=== PATIENT | male | born 1995 | race Caucasian/White ===

== ENCOUNTER 2017-05-24 23:42 | Emergency (ER) | payer MEDICAID, SELFPAY ==
[2017-05-24 23:44] VITALS: BP 124/76; PULSE 115; RESP 16; TEMP 39.1; O2SAT 97; BMI 24.1
--- NOTE | 2017-05-25 | ED.VISSUMM ---
- ER Visit Summary Date of Service: 05/25/17 Chief Complaint: Dental pain right upper and lower teeth History of Present Illness: The patient is a 22 M presents from [facility] because they gave him medicated cotton balls to apply for his dental pain. He reports fever and chills. He denies ocular, visual auditory symptoms. Denies difficulty opening closing his mouth. Denies change in voice, difficulty swallowing or breathing. He has no history rheumatic fever, murmur, SBE or IV drug use. He is not immune suppressed and is on no immunosuppressive meds. He denies any skin lesions. He denies myalgias arthralgias. He denies headache, photophobia sips of his neck. Physical Examination: Signs remarkable for temperature 102.3 and heart rate 115. He appears uncomfortable. Head is atraumatic no cephalic. Pupils equal reactive. TMs are normal. Nares patent. Posterior pharynx without erythema or exudate. Uvula is midline. Trach is midline with no stridor. He has erosion to the gumline involving the first and second right lower molar. The second upper right bicuspid has a large cavity. There is also a large defect in the right upper third molar. There is discomfort with tapping of the teeth. He reports cold sensitivity. There is no fluctuance or obvious dental/periodontal abscess. He probably has a periapical abscess. Test Results: None were obtained Emergency Department Course and Treatment: Patient received a dose of [place], Naprosyn and clindamycin. Treatment Plan: Total referral sheet, prescription for clindamycin, [place] and Naprosyn Disposition: Discharged to home with mother cabezas Impression: 1. Periapical abscess 2. Dental caries right upper first bicuspid and right upper third molar involving the pulp 3. Erosion of right first and second lower molar with inflammation of the gum. This note was generated with [employer] dictation software. It may contain incorrect words, spelling, and punctuation that were not noted in review of the chart prior to signing ED Disposition - Plan for ED Patient: Disposition: Home or Assisted Living Chief Complaint: Dental Instructions: Dental Abscess, ED Cavity Dental, ED Fever Control Prescriptions: Hydrocodone Bitart/Apap 5-325 [[place] 5MG-325MG] 1 tab PO Q6H PRN PRN 3 Days #10 tab PRN Reason: Pain Naproxen [Naprosyn] 500 mg PO BID #14 tab Clindamycin HCl 300 mg PO 4X/DAY #30 cap Referrals: NOT,DEFINED [NON-STAFF] - Krista Brown [NON-STAFF] - 3-5 Days
--- NOTE | 2017-05-25 00:09 | ED.DCSUM_ITS ---
- ER Visit Summary Date of Service: 05/25/17 Chief Complaint: Dental pain right upper and lower teeth History of Present Illness: The patient is a 22 M presents from [facility] because they gave him medicated cotton balls to apply for his dental pain. He reports fever and chills. He denies ocular, visual auditory symptoms. Denies difficulty opening closing his mouth. Denies change in voice , difficulty swallowing or breathing. He has no history rheumatic fever, murmur , SBE or IV drug use. He is not immune suppressed and is on no immunosuppressive meds. He denies any skin lesions. He denies myalgias arthralgias. He denies headache, photophobia sips of his neck. Physical Examination: Signs remarkable for temperature 102.3 and heart rate 115. He appears uncomfortable. Head is atraumatic no cephalic. Pupils equal reactive. TMs are normal. Nares patent. Posterior pharynx without erythema or exudate. Uvula is midline. Trach is midline with no stridor. He has erosion to the gumline involving the first and second right lower molar. The second upper right bicuspid has a large cavity. There is also a large defect in the right upper third molar. There is discomfort with tapping of the teeth. He reports cold sensitivity. There is no fluctuance or obvious dental/ periodontal abscess. He probably has a periapical abscess. Test Results: None were obtained Emergency Department Course and Treatment: Patient received a dose of [place], Naprosyn and clindamycin. Treatment Plan: Total referral sheet, prescription for clindamycin, [place] and Naprosyn Disposition: Discharged to home with mother cabezas Impression: 1. Periapical abscess 2. Dental caries right upper first bicuspid and right upper third molar involving the pulp 3. Erosion of right first and second lower molar with inflammation of the gum. This note was generated with [employer] dictation software. It may contain incorrect words, spelling, and punctuation that were not noted in review of the chart prior to signing ED Disposition - Plan for ED Patient: Disposition: Home or Assisted Living Chief Complaint: Dental Instructions: Dental Abscess, ED Cavity Dental, ED Fever Control Prescriptions: Hydrocodone Bitart/Apap 5-325 [[place] 5MG-325MG] 1 tab PO Q6H PRN PRN 3 Days #10 tab PRN Reason: Pain Naproxen [Naprosyn] 500 mg PO BID #14 tab Clindamycin HCl 300 mg PO 4X/DAY #30 cap Referrals: NOT,DEFINED [NON-STAFF] - Krista Brown [NON-STAFF] - 3-5 Days
[2017-05-25] MEDS: Naproxen 250 MG Tablet 500 MG PO (00:21)
[2017-05-25] MEDS: Clindamycin HCl 150 MG Capsule 300 MG PO (00:22)
[2017-05-25] MEDS: HYDROcodone Bitartrate/Apap 5/325 Tablet PO (00:22)
== END 2017-05-25 00:25 | disposition home or self-care (01) ==
PROVIDERS: Emergency Provider Emergency Medicine
DX: K04.7 Periapical abscess without sinus (principal); K02.9 Dental caries, unspecified; K03.2 Erosion of teeth; K05.10 Chronic gingivitis, plaque induced; R50.9 Fever, unspecified; Z72.0 Tobacco use
CPT/HCPCS: 99283

== ENCOUNTER 2019-05-19 20:44 | Emergency (ER) | payer MEDICAID, SELFPAY ==
[2019-05-19 20:45] VITALS: BP 119/70; PULSE 115; RESP 16; TEMP 37.4; O2SAT 91; BMI 18.8
--- NOTE | 2019-05-19 21:02 | RAD_ITS ---
STUDY: X-RAY CHEST REASON FOR EXAM: Male, 24 years old. COUGH WITH FEVER. LOW PULSE OX TECHNIQUE: PA and lateral views of the chest. COMPARISON: None. FINDINGS: Cardiac silhouette unremarkable. Pulmonary vascularity unremarkable. Aorta unremarkable. No focal airspace opacities. No pleural effusions. Upper abdomen unremarkable. Osseous structures intact. No pneumothorax. RAD/Chest PA and Lateral IMPRESSION: No acute cardiopulmonary findings Electronically Signed: Tray Esparza, at 22:02 EST Tel , Service support ,
--- NOTE | 2019-05-19 21:13 | ED.VIS.URI ---
History of Present Illness Chief Complaint: Fever Informant: Patient Onset: Days - 06-18 Context: Gradual Onset Timing: Continuous Current Severity: Moderate Maximum Severity: Moderate Worsened by: - - coughing Relieved by: - - albuterol MDI (wheezing) Associated Symptoms: Nasal Congestion, Headache, Myalgias, Nausea, Vomiting - just today, once, Shortness of Breath, Chest Pain - ribs, sore from coughing, Productive Cough Narrative: Mild chronic asthmatic who smokes presenting with flulike symptoms for the last for 5 days. He is having some shortness of breath but it is wheezing and he is not needing to use his albuterol very often. - Past Medical History (1) Asthma Status: Chronic Past Medical History - Allergies and Home Meds Allergies/Adverse Reactions: Allergies No Known Allergies Allergy (Verified 05/19/19 20:45) Primary Care Physician: Care Physician,No Primary [Primary Care Provider] - Smoking Status: Current every day smoker Drugs: None Review of Systems General: Reports: Fever, Malaise, Subjective. Denies: Chills, Sweats Eyes: Denies: Visual changes - bilaterally, Diplopia ENT: Reports: Bilateral ear pain, Rhinorrhea, Sore throat Cardiovascular: Reports: Chest pain. Denies: Palpitations Respiratory: Reports: Dyspnea, Cough, Sputum. Denies: Dyspnea on exertion, Orthopnea Gastrointestinal: Denies: Abdominal pain, Nausea, Vomiting, Diarrhea, Melena, Hematochezia Genitourinary: Denies: Dysuria, Hematuria, Frequency Musculoskeletal: Reports: Myalgias. Denies: Neck pain, Back pain, Swelling Skin: Denies: Rash, Wounds Neurological: Reports: Headache. Denies: Weakness, Numbness Physical Exam Vital Signs/Narrative: Vital Signs Temp Pulse Resp BP Pulse Ox 05/19/19 20:45 99.4 F H 115 H 16 119/70 91 Inital Vital Signs reviewed: Yes General: Well nourished, Well developed, - - NAD Head: Normocephalic, Atraumatic Eyes: Perrl, EOMI Ears: Normal external canal, TM's clear. Negative for: Pain with Movement of Right Tragus, Pain with Movement of Left Tragus, Right Mastoid Tenderness, Left Mastoid Tenderness Nose: Congestion. Negative for: Purulent Drainage Mouth/Throat: Normal Inspection, No Posterior Erythema Neck: Supple, Nontender, No Lymphadenopathy, No Meningismus Cardiovascular: Regular rate, Regular rhythm, No murmurs Respiratory: No distress, CTA bilaterally, Chest nontender Abdomen: Soft, Nontender, Nondistended, Normal bowel sounds Back: Nontender, Normal Inspection Extremities: Nontender, No edema Skin: Normal color, No rash, No Trauma Neurological: Alert, Oriented x3, Cranial nerves II-XII grossly intact, Normal Strength, Normal Sensation Psychological: Normal affect, Normal Mood Diagnostic/Tx/Re-eval Chest X-Ray - ED: 2 View, Read by ED Physician, Normal, Heart, Lungs, Mediastinum, Bony Structures, No Acute Disease - Medical Decision Making Chest x-ray was obtained given the patient's symptoms and pulse ox of only 91% on room air. On my interpretation it is normal. His influenza swab returned positive for influenza B, and certainly that would explain all of his symptoms. He is well outside of the window for getting Tamiflu, and furthermore is doing very well otherwise, and I do not think he needs prednisone for his asthma which has been relatively mild. I discussed that with him and he is in agreement. Supportive care advised, staying home and less he develops symptoms of pneumonia/sepsis, fluids and prn albuterol MDI encouraged. ED Disposition - Plan for ED Patient: Disposition: Home or Assisted Living Diagnosis: Influenza B, Asthma Instructions: INFLUENZA (Adult) Referrals: Doctor,Your [STAFF PHYSICIAN] - As Needed
[2019-05-19] MEDS: Acetaminophen 500 MG Tablet 1000 MG PO (21:24)
[2019-05-19] MEDS: Ketorolac 60 MG/2 ML Vial IM (21:25)
[2019-05-19 22:31] VITALS: BP 118/60; PULSE 80; RESP 16; TEMP 37.8; O2SAT 98
== END 2019-05-19 22:15 | disposition home or self-care (01) ==
PROVIDERS: Emergency Provider Emergency Medicine
DX: J10.1 Influenza due to other identified influenza virus with other respiratory manifestations (principal); J45.909 Unspecified asthma, uncomplicated; F17.200 Nicotine dependence, unspecified, uncomplicated
CPT/HCPCS: 71046; 87804; 96372; 99283

== ENCOUNTER 2025-03-02 15:08 | Emergency (ER) | payer BC, SELFPAY ==
[2025-03-02 15:10] VITALS: BP 128/81; PULSE 86; RESP 18; TEMP 37; O2SAT 99; BMI 21.4
--- NOTE | 2025-03-02 15:23 | RAD_ITS ---
PROCEDURE: FINGER(S) MIN 2 VIEWS 03/02/2025 REASON FOR EXAM: INJURY/PAIN TECHNIQUE: Procedure Code: RADFIN Modality: DX Procedure: 2ND FINGER(S) MIN 2 VIEWS COMPARISON: None. FINDINGS: BONES: No acute fracture or focal osseous lesion. JOINTS: No dislocation. The joint spaces are normal. SOFT TISSUES: There is swelling and tiny radiodense foreign bodies in the dorsal distal 2nd finger. RAD/Finger(s) Min 2 Views IMPRESSION: 1. No acute fracture or dislocation. 2. Swelling and foreign bodies in the dorsal distal 2nd finger. Reading Location: [id number]
--- NOTE | 2025-03-02 15:34 | EX.ED.GENINJ ---
HPI History of Present Illness Chief Complaint: Laceration Detail of Chief Complaint: Injury right index finger Informant: patient Onset/Context/Timing Onset: Today and Hours (Approximate 1 hour ago) Mechanism/Context: Blunt Injury (Hit with his maul.) Location of pain/injuries: Right hand Quality of Pain: Dull Location: Radial side of the right index finger over the DIP joint Current Severity: Mild Maximum Severity: Moderate Worsened by: Removing dressing Relieved by: Nothing Associated Symptoms Associated Symptoms: Negative for Parasthesias, Weakness or Loss of function Narrative Narrative: Patient is a 30-year-old ambidextrous male who presents with injury to his right index finger. This occurred approximate 1 hour prior to presentation. Tetanus is unknown. He has no allergies to antibiotics. Has not had any eat or drink in the past couple of hours. He denies paresthesia, anesthesia or motor weakness. Tetanus Immunization: Unknown Prior similar symptoms: No Recent Illness/Hospitalization: No PFSH PFS Medical History Allergies Active asthma Home Medications ?Medication ?Instructions ?Recorded ?Last Taken ?Type hydrocodone-acetaminophen 5-325mg 1 tab PO Q6H PRN PRN Pain 3 days 03/02/25 Unknown Rx 5mg-325mg #10 TABLETS Allergy/AdvReac Type Severity Reaction Status Date / Time No Known Allergies Allergy Verified 03/02/25 15:11 Social History Smoking Status: Current every day smoker tobacco type: cigarettes and e-cigarettes ROS ROS ED Musculoskeletal Musculoskeletal: Denies back pain, myalgias or neck pain Integumentary Reports other Details: Laceration/skin defect distal radial side of the right index finger Neurologic Neurologic: Denies paresthesias or weakness Hematologic/Lymphatic Hematologic/Lymphatic: Reports other Details: He is on no antithrombotic or anticoagulant. ; Denies easy bleeding or easy bruising EXAM Physical Exam Const Vital Signs: 03/02/25 15:10 Temperature 98.6 F Temperature Source Temporal Pulse Rate 86 Respiratory Rate 18 Blood Pressure 128/81 H Blood Pressure Mean 96 Pulse Ox 99 Oxygen Delivery Method Room Air Positive well nourished and well developed General Appearance ED: well developed and NAD HEENT HEENT Narrative: Head is normocephalic. atraumatic Eyes PERRL and EOMs intact bilaterally Resp normal respiratory effort Cardio regular rhythm Rate: regular rate Extremity full ROM; Negative for normal to inspection Extremity Narrative: Patient has full extension at the DIP and PIP joint of the right index finger. 2-point discrimination is normal. Capillary refill is normal. The skin appears macerated. Patient again was question when this happened and he responded 1 hour ago. There is skin loss. There may be exposure of tendon versus bone. There is no subungual hematoma noted. Median, radial and ulnar function intact. Neuro oriented x3 and CN's II-XII intact bilaterally Sensorium / Orientation: alert Psych mental status grossly normal and thought process normal Skin Skin Narrative: Skin loss linear distal radial side right index finger 3 cm PROC Procedures Other Procedures Procedure(s): Patient has a gaping laceration. It is gaping because there is loss of tissue. Approximately 3 mm width. The finger was anesthetized by digital block using 1% lidocaine without epinephrine. Wound was irrigated with 250 cc of normal saline. The wound was explored. It does not go into the DIP joint. There is no involvement of the extensor tendon and there is no exposure of bone. Using 4-0 Ethilon 3 simple interrupted sutures placed to approximate the wound to facilitate more rapid healing. Antibiotics not indicated. He received pain medicine before he left If he does not have a doctor he is referred to Dr. Blanton [facility] MDM Narrative Medical decision making narrative: X-ray was obtained to evaluate for fracture versus contusion. Tetanus was updated. Once the x-rays been performed and reviewed by me will anesthetize patient and explore wound to determine if there is tendon injury if there is no evidence of osseous injury on imaging. Radiography Chest X-Ray - ED: Read by ED Physician (Three-view x-ray of his right index finger was noted for fracture or foreign body. There is no asymmetry of the DIP joint. This independent reviewed interpreted by me at 1610.) Diagnostic Testing: Clinical Impression(s) from Imaging Studies Finger X-Ray 03/02/25 15:23 IMPRESSION: 1. No acute fracture or dislocation. 2. Swelling and foreign bodies in the dorsal distal 2nd finger. Reading Location: [facility] Discharge Plan Triage Chief Complaint: Laceration ED Provider: Justin Yee Dx/Rx/DC Orders Clinical Impression: Laceration of right index finger, Avulsion of skin of finger, Contusion of right index finger without damage to nail, initial encounter, Elevated blood pressure reading Instructions: ED Hand Laceration- All Closures Prescriptions: New hydrocodone-acetaminophen 5-325 mg tablet 1 tab PO Q6H PRN PRN (Reason: Pain) 3 Days Qty: 10 0RF Primary Care Provider: Care Physician,No Primary Referrals: Dara Blanton DO [Med Staff - Active Staff, Family Practice] - 10-14 Days suture removal Care Physician,No Primary [Primary Care Provider, Medical] Activity Restrictions/Additional Instructions: 1. Keep wound clean and dry 2. Apply bacitracin ointment 2-3 times a day Print Language: Nigerian Disposition Disposition: Home, Self Care
[2025-03-02] MEDS: Lidocaine 1% (20 ml mdv) 20 ML Vial INFILT (16:02)
[2025-03-02] MEDS: HYDROcodone Bitartrate/Apap 5/325 Tablet PO (18:44)
== END 2025-03-02 19:02 | disposition home or self-care (01) ==
PROVIDERS: Emergency Provider Emergency Medicine; Visit Provider Emergency Medicine
DX: S61.210A Laceration without foreign body of right index finger without damage to nail, initial encounter (principal); R03.0 Elevated blood-pressure reading, without diagnosis of hypertension; S60.021A Contusion of right index finger without damage to nail, initial encounter; F17.210 Nicotine dependence, cigarettes, uncomplicated; F17.290 Nicotine dependence, other tobacco product, uncomplicated; J45.909 Unspecified asthma, uncomplicated; Z23 Encounter for immunization; W22.8XXA Striking against or struck by other objects, initial encounter
CPT/HCPCS: 12002; 73140; 96372; 99283